=== PATIENT | male | born 1965 | race African-American/Black ===

== ENCOUNTER 2018-04-01 14:49 | Emergency (ER) | payer SELFPAY ==
[2018-04-01] MEDS ORDERED: NICARDIPINE HCL RTU, ISO-OS 20 MG/200 ML RTUINJ IV PRN (15:03)
[2018-04-01] MEDS ORDERED: NICARDIPINE HCL RTU, ISO-OS 20 MG/200 ML RTUINJ IV ONE (15:03)
--- NOTE | 2018-04-01 15:05 | ER Document Report ---
ED General - General Stated Complaint: POSSIBLE STROKE Time Seen by Provider: 04/01/18 15:01 - HPI Patient complains to provider of: Right-sided weakness Notes: Patient coming in via EMS from his place of work for right-sided weakness. Symptom onset was approximately 10-15 minutes prior to the patient's arrival. The I did meet the patient is door to clear him to get a CAT scan. Patient is able to tell me his name however has total right sided neglect when I am standing on the right side the stretcher stopping any attention to me patient is able to move his left arm and his left leg. Patient is unable to give me any clear information as far as his past medical history eMS does deny any trauma. - Related Data Allergies/Adverse Reactions: No Known Allergies Allergy (Verified 04/01/18 15:45) Past Medical History - Social History Smoking Status: Unknown if Ever Smoked Family History: Reviewed & Not Pertinent Review of Systems - Review of Systems Constitutional: No symptoms reported EENT: No symptoms reported Cardiovascular: No symptoms reported Respiratory: No symptoms reported Gastrointestinal: No symptoms reported Genitourinary: No symptoms reported Male Genitourinary: No symptoms reported Musculoskeletal: No symptoms reported Skin: No symptoms reported Hematologic/Lymphatic: No symptoms reported Neurological/Psychological: No symptoms reported, Other - Right-sided weakness -: Yes All other systems reviewed and negative Physical Exam - Vital signs Vitals: Temp Pulse Resp BP Pulse Ox 97.7 F 103 H 15 243/120 H 98 04/01/18 15:10 04/01/18 15:10 04/01/18 15:10 04/01/18 15:10 04/01/18 15:10 Interpretation: Hypertensive - General General appearance: Alert - HEENT Head: Normocephalic, Atraumatic Eyes: Normal Conjunctiva: Normal Cornea: Normal Extraocular movements intact: Yes Pupils: PERRL - Respiratory Respiratory status: No respiratory distress Chest status: Nontender Breath sounds: Normal Chest palpation: Normal - Cardiovascular Rhythm: Regular Heart sounds: Normal auscultation Murmur: No - Abdominal Inspection: Normal Distension: No distension Bowel sounds: Normal Tenderness: Nontender Organomegaly: No organomegaly - Extremities General upper extremity: Normal inspection, Nontender, Normal color, Normal temperature General lower extremity: Normal inspection, Nontender, Normal color, Normal temperature - Neurological Neuro grossly intact: No Cognition: Inattentive - Patient has right-sided neglect and inattentiveness when standing on the right side patient patient would not knowledge or answer any questions patient will acknowledge and she questions when standing on the left side. Patient is GCS is 13-14 Patient does have some garbled speech otherwise looks to be maintaining his airway no signs of the patient needs to have any airway intervention. Patient has facial drooping on the right side of his face Unable to perform any cerebellar coordination Patient is able to graft my fingers with his left hand squeeze able to move his left foot with movement of the right leg or upper extremity Orientation: AAOx4 Walker Coma Scale Eye Opening: Spontaneous [place] Coma Scale Verbal: Confused Walker Coma Scale Motor: Localizes to Pain Walker Coma Scale Total: 13 Sensory: Normal - Psychological Associated symptoms: Normal affect, Normal mood - Skin Skin Temperature: Warm Skin Moisture: Dry Skin Color: Normal Course - Re-evaluation Re-evalutation: 04/01/18 16:23 Patient presented today for strokelike symptoms. EMS during her transport initially were going to hot load the patient here at [facility] and did notify [facility] aircraft was sent While the patient was in the CAT scan or the aircraft did land crew was waiting for the patient within his room. Did continue to perform evaluation CT of the head that showed a intracranial bleed. Patient's vital signs show a exquisite hypertension therefore patient was started on Cardene Was able to contact [facility] and speak to Dr. Cristina who agrees to accept the patient in transfer will transfer the patient to the ER Intolerant was filled out a portion of laboratory studies and my chart was still pending upon Aircraft liftoff Blood pressure guidance was given to the aircraft Team systolics less than 150 Patient was transported with stable airway 04/01/18 16:26 Family did arrive stating patient has no past medical history does not take any medications not allergic to any medications does not smoke drink or do any drugs. No history of recent trauma - Vital Signs Vital signs: Temp Pulse Resp BP Pulse Ox 97.7 F 103 H 15 243/120 H 98 04/01/18 15:10 04/01/18 15:10 04/01/18 15:10 04/01/18 15:10 04/01/18 15:10 - Laboratory Result Diagrams: 04/01/18 15:12 04/01/18 15:12 Laboratory results interpreted by me: 04/01/18 15:12 WBC 10.8 H RDW 14.5 H Critical Care Note - Critical Care Note Total time excluding time spent on procedures (mins): 35 Comments: Time spent bedside evaluating the patient discussing the transferring etiology for patient with a hemorrhagic stroke. Discharge - Discharge Clinical Impression: Hemorrhagic stroke, Hypertensive emergency Condition: Good Disposition: [facility] Referrals: LOCALMD,NO [NO LOCAL MD] - Follow up as needed
--- NOTE | 2018-04-01 15:14 | RADIOLOGY REPORT (SQ) ---
EXAM DESCRIPTION: CHEST SINGLE VIEW COMPLETED DATE/TIME: 04/01/2018 3:06 pm REASON FOR STUDY: stroke COMPARISON: None. EXAM PARAMETERS: NUMBER OF VIEWS: One view. TECHNIQUE: Single frontal radiographic view of the chest acquired. RADIATION DOSE: NA LIMITATIONS: None. FINDINGS: LUNGS AND PLEURA: No opacities, masses or pneumothorax. No pleural effusion. MEDIASTINUM AND HILAR STRUCTURES: No masses. Contour normal. HEART AND VASCULAR STRUCTURES: Cardiomegaly. BONES: No acute findings. HARDWARE: None in the chest. OTHER: No other significant finding. IMPRESSION: Cardiomegaly without acute abnormality of the lungs in AP projection. TECHNICAL DOCUMENTATION: JOB ID: [id number] [employer]- All Rights Reserved Reading location - IP/workstation name: [email or web address]
--- NOTE | 2018-04-01 15:14 | RADIOLOGY REPORT (SQ) ---
EXAM DESCRIPTION: CT HEAD WITHOUT COMPLETED DATE/TIME: 04/01/2018 3:02 pm REASON FOR STUDY: stroke COMPARISON: None. TECHNIQUE: Axial images acquired through the brain without intravenous contrast. Images reviewed wi th bone, brain and subdural windows. Additional sagittal and coronal reconstructions were generated. Images stored on PACS. All CT scanners at this facility use dose modulation, iterative reconstruction, and/or weight based d osing when appropriate to reduce radiation dose to as low as reasonably achievable (ALARA). [facility]: Dose Right [facility]: CareDose [facility]: Dose Right [facility]: Teradose 4D [facility]: Navendis RADIATION DOSE: 1070 mGy cm LIMITATIONS: None. FINDINGS: VENTRICLES: Normal size and contour. CEREBRUM: There is a 4.2 x 2.1 cm hemorrhage centered in the left basal ganglia, in the lentiform nuc lei and posterior limb of the internal capsule. Normal hall/white matter differentiation. No areas of low density in the white matter. CEREBELLUM: No masses. No hemorrhage. No alteration of density. No evidence for acute infarction. EXTRAAXIAL SPACES: No fluid collections. No masses. ORBITS AND GLOBE: No intra- or extraconal masses. Normal contour of globe without masses. CALVARIUM: No fracture. PARANASAL SINUSES: No fluid or mucosal thickening. SOFT TISSUES: No mass or hematoma. OTHER: No other significant finding. IMPRESSION: There is a 4.2 x 2.1 cm hemorrhage centered in the left basal ganglia, in the lentiform nuclei and posterior limb of the internal capsule. No significant mass effect or midline shift at th is time. EVIDENCE OF ACUTE STROKE: YES. Findings discussed with doctor Dr. Mcqueen 1507 hours, 04/01/2018 COMMENT: Quality ID # [id number]: Final reports with documentation of one or more dose reduction techniques (e.g., Automated exposure control, adjustment of the mA and/or kV according to patient size, use of iterative reconstruction technique) TECHNICAL DOCUMENTATION: JOB ID: [id number] [employer]- All Rights Reserved Reading location - IP/workstation name: [email or web address]
[2018-04-01 15:21] LABS: ABSOLUTE BASOPHILS # (AUTO) 0.1 10^3/uL (0.0-0.2); ABSOLUTE EOSINOPHILS # (AUTO) 0.1 10^3/uL (0.0-0.6); ABSOLUTE LYMPHOCYTES (AUTO) 2.2 10^3/uL (0.5-4.7); ABSOLUTE NEUT (AUTO) 7.5 10^3/uL (1.7-8.2); BASOPHILS % (AUTO) 0.6 % (0-2); EOSINOPHILS % (AUTO) 1.2 % (0-6); HEMATOCRIT 40.1 % (37.9-51.0); HEMOGLOBIN 13.8 g/dL (13.5-17.0); LYMPHOCYTES % (AUTO) 20.1 % (13-45); MEAN CORPUSCULAR HEMOGLOBIN 27.5 pg (27.0-33.4); MEAN CORPUSCULAR HGB CONC 34.3 g/dL (32.0-36.0); MEAN CORPUSCULAR VOLUME 80 fl (80-97); MONOCYTES % (AUTO) 8.8 % (3-13); PLATELET COUNT 278 10^3/uL (150-450); RED BLOOD COUNT 5.01 10^6/uL (4.35-5.55); RED CELL DISTRIBUTION WIDTH 14.5 % (11.5-14.0); SEGMENTED NEUTROPHILS % (AUTO) 69.3 % (42-78); TOTAL CELLS COUNTED % (AUTO) 100 %; WHITE BLOOD COUNT 10.8 10^3/uL (4.0-10.5)
[2018-04-01 15:34] LABS: PROTHROMBIN TIME 12.6 SEC (11.4-15.4)
[2018-04-01 15:35] LABS: PARTIAL THROMBOPLASTIN TIME 33.1 SEC (23.5-35.8)
[2018-04-01 15:47] VITALS: BP 243/120
== END 2018-04-01 15:22 | disposition short-term general hospital (02) ==
LOC: ER 14:49
DX: I61.0 Nontraumatic intracerebral hemorrhage in hemisphere, subcortical (principal); G81.91 Hemiplegia, unspecified affecting right dominant side; R29.810 Facial weakness; R47.89 Other speech disturbances; R41.0 Disorientation, unspecified; I16.1 Hypertensive emergency
CPT/HCPCS: 36415; 70450; 71045; 85025; 85610; 85730; 99291